=== PATIENT | male | born 2000 | race Caucasian/White ===

== ENCOUNTER 2022-10-08 16:21 | Emergency (ER) | payer MEDICAID ==
[~2022-10-08] VITALS: Ht 182.8 cm; Wt 70.3 kg
[2022-10-08] MEDS ORDERED: FAMOTIDINE INJ 20MG/2ML VIAL IV STA (16:40)
[2022-10-08] MEDS ORDERED: ONDANSETRON 4 MG/2 ML (SDV) Z0FRAN IVP ONE (16:45)
--- NOTE | 2022-10-08 16:46 | ED Chest Pain ---
General Chief Complaint: Abdominal/GI Problems Stated Complaint: ABD PAIN | CHEST PAIN | LAST 4-5 MONTHS Nursing Triage Note: PT AMB TO RM 4 WITH MOTHER WITH C/O CP AND ABD PAIN X4 MONTHS. PT STATES LATELY HE HAS FELT LIGHT HEADED AND LAST NIGHT HE VOMITTED BRIGHT RED BLOOD Source: patient Exam Limitations: no limitations History of Present Illness Date Seen by Provider: Oct 08, 2022 Time Seen by Provider: 16:31 Initial Comments 22-year-old male presents to the ER with complaint of chest pain and abdominal pain for the past 4 months. He states the chest pain is mostly in the sternal region, but also radiates outward. Reports that the chest pain is constant. He reports all over abdominal pain. States that he started vomiting last night and has had bright red streaks of blood in his emesis. He states that last night his pain felt like a burning pain, currently it feels like someone is stomping on his chest. He reports shortness of air at times. Denies diarrhea or constipation and dysuria. Last bowel movement was 2 hours ago, states it was brown in color, denies any blood or black tarry stools. He is currently prescribed omeprazole and Carafate, states he was started on this for possible peptic ulcer. States he has not had an upper endoscopy to confirm this. States that he was started on this medication because he was having a lot of vomiting, he was not having the same pain when he started the medications. He reports that he smokes cigarettes and weed daily. Denies alcohol use. Denies taking a lot of aspirin or ibuprofen recently. Allergies and Home Medications Allergies Coded Allergies: No Known Drug Allergies (Unverified , 10/08/22) Patient Home Medication List Home Medication List Reviewed: Yes Review of Systems Review of Systems Constitutional: see HPI Past Vyejcqy-Ostmjr-Isimve Hx Patient Social History Tobacco Use?: Yes Tobacco type used: Cigarettes Substance use?: Yes Substance type: Marijuana Alcohol Use?: No Pt feels they are or have been: No Past Medical History Surgery/Hospitalization HX: GERD Physical Exam Vital Signs Vital Signs - First Documented 10/08/22 16:30 Temp 37.3 Pulse 69 Resp 14 B/P (MAP) 141/92 (108) Pulse Ox 97 O2 Delivery Room Air Capillary Refill : Height, Weight, BMI Height: '" Weight: lbs. oz. kg; 21.00 BMI Method: General Appearance: No Apparent Distress, WD/WN Neck: Normal Inspection, Supple Respiratory: Lungs Clear, Normal Breath Sounds, No Accessory Muscle Use, No Respiratory Distress, Other (Chest mildly tender to palpation along sternum) Cardiovascular: Regular Rate, Rhythm Gastrointestinal: Normal Bowel Sounds, Non Tender, Soft Extremity: Normal Inspection, Normal Range of Motion Neurologic/Psychiatric: Alert, Normal Mood/Affect Skin: Normal Color, Warm/Dry Progress/Results/Core Measures Results/Orders Lab Results Laboratory Tests Test 10/08/22 16:44 10/08/22 17:07 Range/Units White Blood Count 9.9 4.3-11.0 10^3/uL Red Blood Count 5.02 4.30-5.52 10^6/uL Hemoglobin 16.8 13.3-17.7 g/dL Hematocrit 48 40-54 % Mean Corpuscular Volume 95 80-99 fL Mean Corpuscular Hemoglobin 34 25-34 pg Mean Corpuscular Hemoglobin Concent 35 32-36 g/dL Red Cell Distribution Width 12.6 10.0-14.5 % Platelet Count 226 130-400 10^3/uL Mean Platelet Volume 10.3 9.0-12.2 fL Immature Granulocyte % (Auto) 0 % Neutrophils (%) (Auto) 74 42-75 % Lymphocytes (%) (Auto) 17 12-44 % Monocytes (%) (Auto) 7 0-12 % Eosinophils (%) (Auto) 2 0-10 % Basophils (%) (Auto) 0 0-10 % Neutrophils # (Auto) 7.4 1.8-7.8 X 10^3 Lymphocytes # (Auto) 1.7 1.0-4.0 X 10^3 Monocytes # (Auto) 0.7 0.0-1.0 X 10^3 Eosinophils # (Auto) 0.2 0.0-0.3 10^3/uL Basophils # (Auto) 0.0 0.0-0.1 10^3/uL Immature Granulocyte # (Auto) 0.0 0.0-0.1 10^3/uL Prothrombin Time 13.6 12.2-14.7 SEC INR Comment 1.0 0.8-1.4 Activated Partial Thromboplast Time 33 24-35 SEC Sodium Level 139 135-145 MMOL/L Potassium Level 3.6 3.6-5.0 MMOL/L Chloride Level 105 98-107 MMOL/L Carbon Dioxide Level 22 21-32 MMOL/L Anion Gap 12 5-14 MMOL/L Blood Urea Nitrogen 7 7-18 MG/DL Creatinine 0.86 0.60-1.30 MG/DL Estimat Glomerular Filtration Rate 126 BUN/Creatinine Ratio 8 Glucose Level 104 70-105 MG/DL Calcium Level 10.1 8.5-10.1 MG/DL Corrected Calcium 8.5-10.1 MG/DL Magnesium Level 2.0 1.6-2.4 MG/DL Total Bilirubin 1.3 H 0.1-1.0 MG/DL Aspartate Amino Transf (AST/SGOT) 22 5-34 U/L Alanine Aminotransferase (ALT/SGPT) 25 0-55 U/L Alkaline Phosphatase 70 40-136 U/L Troponin I < 0.028 <0.028 NG/ML Total Protein 8.0 6.4-8.2 GM/DL Albumin 5.0 H 3.2-4.5 GM/DL Lipase 6 L 8-78 U/L Urine Color YELLOW Urine Clarity CLEAR Urine pH 7.0 5-9 Urine Specific [place] 1.010 L 1.016-1.022 Urine Protein NEGATIVE NEGATIVE Urine Glucose (UA) NEGATIVE NEGATIVE Urine Ketones 2+ H NEGATIVE Urine Nitrite NEGATIVE NEGATIVE Urine Bilirubin NEGATIVE NEGATIVE Urine Urobilinogen 0.2 < = 1.0 MG/DL Urine Leukocyte Esterase NEGATIVE NEGATIVE Urine RBC (Auto) 1+ H NEGATIVE Urine RBC 0-2 /HPF Urine WBC NONE /HPF Urine Crystals NONE /LPF Urine Bacteria NEGATIVE /HPF Urine Casts NONE /LPF Urine Mucus NEGATIVE /LPF Urine Culture Indicated NO My Orders Orders - YUDI ASTORGA APRN Ua Culture If Indicated (10/08/22 16:30) Cbc With Automated Diff (10/08/22 16:39) Magnesium (10/08/22 16:39) Chest 1 View, Ap/Pa Only (10/08/22 16:39) Ekg Tracing (10/08/22 16:39) Comprehensive Metabolic Panel (10/08/22 16:39) Protime With Inr (10/08/22 16:39) Partial Thromboplastin Time (10/08/22 16:39) Ed Iv/Invasive Line Start (10/08/22 16:39) Troponin I Andreina (10/08/22 16:39) Ondansetron Injection (Zofran Injectio (10/08/22 16:45) Famotidine Injection (Famotidine Injec (10/08/22 16:40) Lipase (10/08/22 16:46) Lidocaine 2% Viscous 15 Ml (Lidocaine 2% (10/08/22 17:30) Antacid Suspension (Mylanta Suspension (10/08/22 17:30) Medications Given in ED Current Medications Medications Dose Ordered Sig/Wang Route Start Time Stop Time Status Last Admin Dose Admin Al Hydrox/Mg Hydrox/Simethicone 30 ml ONCE ONCE PO 10/08/22 17:30 10/08/22 17:31 DC 10/08/22 17:35 30 ML Lidocaine HCl 15 ml ONCE ONCE PO 10/08/22 17:30 10/08/22 17:31 DC 10/08/22 17:35 15 ML Ondansetron HCl 4 mg ONCE ONCE IVP 10/08/22 16:45 10/08/22 16:46 DC 10/08/22 16:56 4 MG Vital Signs/I&O 10/08/22 10/08/22 16:30 18:19 Temp 37.3 37.3 Pulse 69 62 Resp 14 14 B/P (MAP) 141/92 (108) 134/67 Pulse Ox 97 98 O2 Delivery Room Air Room Air Blood Pressure Mean: 108 Progress Progress Note : Progress Note Patient seen and evaluated, resting comfortably in bed, no acute distress. Based on exam and symptoms workup initiated including CBC, CMP, lipase, UA, troponin, coags, magnesium EKG, chest x-ray. 1806 labs and x-ray reviewed. CBC grossly normal. CMP grossly normal. Total bilirubin slightly over 1.3. Troponin negative. Lipase normal. Urinalysis shows 2+ ketones, negative for infection. Coags normal. Chest x-ray shows no acute cardiopulmonary process. Patient reports improvement in pain after medications. Results discussed with patient. Will discharge with instructions to follow-up with Dr. Russo, surgery for possible upper endoscopy. Discharge instructions and return precautions provided. Initial ECG Impression Date: Oct 08, 2022 Initial ECG Impression Time: 16:50 Initial ECG Rate: 57 Initial ECG Rhythm: Normal Sinus Initial ECG Intervals: Normal Initial ECG Impression: Normal Initial ECG Comparisson: No Previous ECG Available Diagnostic Imaging Diagonstic Imaging: Xray Plain Films/CT/US/NM/MRI: chest Comments [facility]. [place], [place] NAME: LUISANA GAMBOA [facility] REC#: [id number] PT STATUS: REG ER : 2001 PHYSICIAN: YUDI ASTORGA APRN ADMIT DATE: 10/08/22/ER Signed Date of Exam:10/08/22 CHEST 1 VIEW, AP/PA ONLY CHEST 1 VIEW, AP/PA ONLY Indication: Chest pain. Comparison: None available. Findings: No focal airspace disease in the visualized lungs. No pleural effusion or pneumothorax. Normal cardiomediastinal silhouette. Impression: 1. No acute cardiopulmonary process by portable radiography. Dictated by: Dictated on workstation # [id number] Dict: 10/08/221655 Trans: 10/08/221655 [facility] [id number] Interpreted by: CARLOS WILSON MD Electronically signed by: CARLOS WILSON MD 10/08/221655 Departure Impression Primary Impression: Abdominal pain Additional Impressions: Chest pain Gastric reflux Disposition: 01 HOME, SELF-CARE Condition: Stable Departure-Patient Inst. Decision time for Depature: 18:06 Referrals: CHARLY RUSSO MD, CURTIS L PA (PCP) Primary Care Physician Patient Instructions: Peptic Ulcers (DC) Add. Discharge Instructions: Call Dr. Russo's office tomorrow to schedule a follow-up appointment for an upper endoscopy. Continue taking your omeprazole and Carafate as prescribed. Follow-up with your primary care provider. Return for any severe pain, significant amount of bloody emesis, blood in stool or black tarry stool, or any other new, concerning, or worsening symptoms. All discharge instructions reviewed with patient and/or family. Voiced understanding. YUDI ASTORGA APRN Oct 08, 2022 16:46
[2022-10-08 16:53] LABS: BASOPHILS % (AUTO) 0 % (0-10); EOSINOPHILS # (AUTO) 0.2 10^3/uL (0.0-0.3); EOSINOPHILS % (AUTO) 2 % (0-10); HEMATOCRIT 48 % (40-54); HEMOGLOBIN 16.8 g/dL (13.3-17.7); LYMPHOCYTES # (AUTO) 1.7 X 10^3 (1.0-4.0); LYMPHOCYTES % (AUTO) 17 % (12-44); MEAN CORPUSCULAR HEMOGLOBIN 34 pg (25-34); MEAN CORPUSCULAR HGB CONC 35 g/dL (32-36); MEAN CORPUSCULAR VOLUME 95 fL (80-99); MEAN PLATELET VOLUME 10.3 fL (9.0-12.2); MONOCYTES # (AUTO) 0.7 X 10^3 (0.0-1.0); MONOCYTES % (AUTO) 7 % (0-12); NEUTROPHILS # (AUTO) 7.4 X 10^3 (1.8-7.8); NEUTROPHILS % (AUTO) 74 % (42-75); PLATELET COUNT 226 10^3/uL (130-400); WHITE BLOOD COUNT 9.9 10^3/uL (4.3-11.0)
--- NOTE | 2022-10-08 16:58 | Diagnostic Imaging Report ---
CHEST 1 VIEW, AP/PA ONLY Indication: Chest pain. Comparison: None available. Findings: No focal airspace disease in the visualized lungs. No pleural effusion or pneumothorax. Normal cardiomediastinal silhouette. Impression: 1. No acute cardiopulmonary process by portable radiography. Dictated by: Dictated on workstation # [id number]
[2022-10-08 17:03] LABS: PROTHROMBIN TIME PATIENT 13.6 SEC (12.2-14.7)
[2022-10-08 17:07] LABS: CHLORIDE 105 MMOL/L (98-107); POTASSIUM 3.6 MMOL/L (3.6-5.0); SODIUM 139 MMOL/L (135-145)
[2022-10-08 17:08] LABS: CALCIUM 10.1 MG/DL (8.5-10.1)
[2022-10-08 17:09] LABS: GLUCOSE 104 MG/DL (70-105)
[2022-10-08 17:10] LABS: CARBON DIOXIDE 22 MMOL/L (21-32)
[2022-10-08 17:11] LABS: BILIRUBIN,TOTAL 1.3 MG/DL (0.1-1.0)
[2022-10-08 17:12] LABS: ALKALINE PHOSPHATASE 70 U/L (40-136); CREATININE SERUM 0.86 MG/DL (0.60-1.30)
[2022-10-08 17:13] LABS: GFR ESTIMATED 126
[2022-10-08 17:14] LABS: BUN/CREATININE RATIO 8
[2022-10-08 17:15] LABS: ALANINE AMINOTRANSFERASE 25 U/L (0-55)
[2022-10-08 17:16] LABS: LIPASE 6 U/L (8-78)
[2022-10-08 17:22] LABS: CLARITY,URINE CLEAR; COLOR,URINE YELLOW
[2022-10-08 17:23] LABS: BACTERIA,URINE NEGATIVE /HPF; BILIRUBIN,URINE NEGATIVE (NEGATIVE); GLUCOSE, URINE (UA) NEGATIVE (NEGATIVE); KETONES,URINE 2+ (NEGATIVE); LEUKOCYTE ESTERASE ,URINE NEGATIVE (NEGATIVE); NITRITE,URINE NEGATIVE (NEGATIVE); PROTEIN,URINE NEGATIVE (NEGATIVE); RBC,URINE 0-2 /HPF
[2022-10-08] MEDS ORDERED: ANTACID SUSP 30 ML UDC (MYLANTA) PO ONE (17:30)
[2022-10-08] MEDS ORDERED: LIDOCAINE 2% VISCOUS 15 ML UDC PO ONE (17:30)
[2022-10-08 18:19] VITALS: BP 134/67
== END 2022-10-08 18:21 | disposition home or self-care (01) ==
LOC: ER 16:25
DX: K21.9 Gastro-esophageal reflux disease without esophagitis (principal); F17.210 Nicotine dependence, cigarettes, uncomplicated
CPT/HCPCS: 36415; 71045; 80053; 81000; 83690; 83735; 84484; 85025; 85610; 85730; 93005

== ENCOUNTER 2022-10-15 12:18 | Day surgery (SDC) | payer MEDICAID ==
[~2022-10-15] VITALS: Ht 180.3 cm; Wt 70.3 kg
[2022-10-15] MEDS ORDERED: LACTATED RINGERS 1,000 ML 1,000 ML IV STA (12:36)
[2022-10-15] MEDS ORDERED: SUCR1TAB PO (12:36)
[2022-10-15] MEDS ORDERED: OMEP20CA18 PO (12:36)
[2022-10-15 12:42] VITALS: BP 118/74
[2022-10-15] MEDS ORDERED: HURRICAINE EXT TUBE (BENZOCAINE) XX PRN (12:45)
[2022-10-15] MEDS ORDERED: LIDOCAINE JELLY 2% 6 ML SYRINGE MM PRN (12:45)
--- NOTE | 2022-10-15 13:34 | Progress Note-Pre Operative ---
Pre-Operative Progress Note Date of Available H&P: Oct 15, 2022 Date H&P Reviewed: Oct 15, 2022 Time H&P Reviewed: 13:30 History & Physical: No changes noted Pre-Operative Diagnosis: GERD, hematamesis CHARLY HELMS MD Oct 15, 2022 13:34
[2022-10-15] MEDS ORDERED: OMEP40CA6 PO (13:35)
--- NOTE | 2022-10-15 13:36 | Discharge Inst-Surgical ---
D/C Lap Instructions-ANALIA New, Converted, or Re-Newed RX: RX on Chart Follow Up Activity as tolerated High Fiber Diet 25g or more per day Avoid Alcohol, Caffeine, Spicy [place] and Acid foods. Drink 64 fluid oz or more of fluids per day. Symptoms to Report: Fever over 101 degree F, Nausea/Vomiting If any problems/questions: Contact your physician or go to Emergency Room CHARLY HELMS MD Oct 15, 2022 13:36
[2022-10-15] MEDS ORDERED: ONDANSETRON INJECTION 4 MG/2 ML (SDV) IVP PRN (13:45)
[2022-10-15] MEDS ORDERED: ONDANSETRON 4 MG ORAL DISSOLVE TABLET PO PRN (13:45)
[2022-10-15] MEDS ORDERED: LIDOCAINE JELLY 2% 6 ML SYRINGE ONE (15:17)
[2022-10-15] MEDS ORDERED: MIDAZOLAM INJ 2 MG/2 ML VIAL ONE (15:42)
--- NOTE | 2022-10-15 15:59 | Anesthesia-General Post-Op ---
MAC Patient Condition Mental Status/LOC: Same as Preop Cardiovascular: Satisfactory Nausea/Vomiting: Absent Respiratory: Satisfactory Pain: Controlled Complications: Absent Post Op Complications Complications None Follow Up Care/Instructions Patient Instructions None needed. Anesthesiology Discharge Order Discharge Order Patient is doing well, no complaints, stable vital signs, no apparent adverse anesthesia problems. No complications reported per nursing. GEN CHOUDHURY WAREHOUSE MANAGER Oct 15, 2022 15:59
[2022-10-15 16:00] VITALS: BP 113/57
[2022-10-15 16:15] VITALS: BP 115/56
[2022-10-15] MEDS ORDERED: PANT40TA52 PO (16:31)
[2022-10-15 16:40] VITALS: BP 115/56
--- NOTE | 2022-10-15 16:41 | Progress Note-Post Operative ---
Post-Operative Progess Note Surgeon (s)/Lumber Driver (s) Surgeon CHARLY HELMS MD Lumber Driver: none Pre-Operative Diagnosis GERD, hematamesis Post-Operative Diagnosis reflux esophagitis(grade B-C), small HH(1cm), moderate gastritis with antral erosion. Procedure & Operative Findings Date of Procedure 10/15/22 Procedure Performed/Findings EGD with bx. Anesthesia Type mac Estimated Blood Loss Estimated blood loss (mL): minimal Specimens/Packing Specimens Removed ge jxn, antrum CHARLY HELMS MD Oct 15, 2022 16:41
--- NOTE | 2022-10-16 02:10 | OPERATIVE REPORT ---
DATE OF SERVICE: 10/15/2022 ATTENDING PRIMARY CARE PHYSICIAN: RAVEN Spaulding. PREOPERATIVE DIAGNOSES: Gastroesophageal reflux disease, epigastric pain, hematemesis. POSTOPERATIVE DIAGNOSES: Reflux esophagitis, [place] grade C, small hiatal hernia, 1.5 cm in size, moderate gastritis with an antral erosion, mild duodenitis. PROCEDURE: EGD with biopsy. SURGEON: Charly Helms MD. ANESTHESIA: Monitored anesthesia care. ESTIMATED BLOOD LOSS: Minimal. FINDINGS: Same as postoperative diagnoses. DISPOSITION: The patient tolerated the procedure well. INDICATIONS: The patient is a 22-year-old male who presented to the emergency department approximately a week and a half ago due to nausea and vomiting and noticing blood in his emesis. He reports that he has had some intermittent episodes of reflux and epigastric pain for the past 2 months. He also reports that this pain does sometimes radiate towards the right upper abdominal quadrant as well as the back. He also reports early satiety. He does have some risk factors for reflux including smoking cigarettes daily for approximately 5 pack years. He also does smoke THC on a regular basis. He does drink some caffeinated beverages with coffee in the morning. He was recently started on omeprazole and Carafate and states that this did help alleviate some of his symptomatology. DESCRIPTION OF PROCEDURE: The patient was brought to the endoscopy suite and laid in the left lateral decubitus position. After adequate IV pain and sedative medications and monitored anesthesia care, the mouthpiece was applied. The endoscope was placed in the mouth, visualized the pharynx and hypopharyngeal region. Vocal cords, epiglottis and vallecula identified and appeared to be normal. Endoscope was then gently intubated into the esophageal opening and esophagus insufflated. The endoscope was then advanced through the first, second and third portions of esophagus at the level of the GE junction. Reflux esophagitis, [place] grade C was identified. There were no ulcers, strictures or any active bleeding sources. A biopsy was taken with forceps with visualization of good hemostasis. The endoscope was then advanced in the stomach and endoscope retroflexed, visualizing a small hiatal hernia approximately 1.5 cm in size. There was a moderate gastritis with a small antral erosion with no active bleeding. A biopsy was taken of this region with forceps with visualization of good hemostasis. The endoscope was then advanced through the pylorus and the first and second portion of the duodenum, which appeared normal with no ulcerations or any distal obstructions. The endoscope was slowly withdrawn while taking a second look and suctioning of residual air with no additional findings. The patient tolerated the procedure well. We will recommend the necessary lifestyle and dietary accommodation, which would encompass smoking cessation as well as avoidance of caffeinated beverages, spicy, greasy and acidic foods. He also needs to proceed with small and more frequent meals, avoidance of eating at night as well as head elevation while lying supine. He is already on omeprazole 40 mg daily; however, we will add pantoprazole 40 mg to be taken at a separate time during the day for the next 3 months. If he is doing better, he may then discontinue the pantoprazole. We also feel that there may be gallbladder component to his symptoms with the pain radiating towards the right upper abdominal quadrant as well as the back and early satiety with abdominal bloating and the episodes of nausea and vomiting, so we will have him follow up in the office in 1 week and schedule him for noninvasive testing including the gallbladder ultrasound as well as a HIDA scan if necessary. Job ID: [id number] DocumentID: [id number] Dictated Date: 10/15/2022 16:06:12 Business Partner Date: 10/16/2022 02:07:00 Dictated By: CHARLY HELMS MD
== END 2022-10-15 16:42 | disposition home or self-care (01) ==
LOC: ENDO 12:18
PROVIDERS: ATTEND Surgery
DX: K29.50 Unspecified chronic gastritis without bleeding (principal); K21.00 Gastro-esophageal reflux disease with esophagitis, without bleeding; K29.80 Duodenitis without bleeding; K27.9 Peptic ulcer, site unspecified, unspecified as acute or chronic, without hemorrhage or perforation; K44.9 Diaphragmatic hernia without obstruction or gangrene; F17.210 Nicotine dependence, cigarettes, uncomplicated

== ENCOUNTER → 2022-10-27 | Outpatient (CLI) | payer MEDICAID ==
[~2022-10-27] MED LIST: OMEP20CA18 PO; OMEP40CA6 PO; PANT40TA52 PO; SUCR1TAB PO
--- NOTE | 2022-10-27 08:48 | Diagnostic Imaging Report ---
PROCEDURE: US Gallbladder. TECHNIQUE: Multiple real-time grayscale images were obtained over the right upper quadrant in various projections. INDICATION: Right upper quadrant pain with nausea and vomiting. Liver is normal in size at 15 cm. Portal vein is patent and shows normal direction of flow. No liver mass is identified. The gallbladder is without stones or sludge. There is no wall thickening or biliary ductal dilatation. Pancreas is unremarkable. Aorta is nonaneurysmal. IVC is patent. The right kidney is without calculi or hydronephrosis. There is no ascites. IMPRESSION: Unremarkable gallbladder ultrasound. There is no evidence of cholelithiasis or acute cholecystitis. Dictated by: Dictated on workstation # [id number]
== END ==
LOC: RAD 07:45
PROVIDERS: ATTEND Surgery
DX: R10.11 Right upper quadrant pain (principal); R11.2 Nausea with vomiting, unspecified
CPT/HCPCS: 76705

== ENCOUNTER → 2022-10-30 | Outpatient (CLI) | payer MEDICAID ==
[~2022-10-30] MED LIST changes: +CATHETER FLUSH 10 ML SYR IVP PRN
--- NOTE | 2022-10-30 12:52 | Diagnostic Imaging Report ---
Indication: Right upper quadrant pain. Patient was administered 5.5 mCi technetium 99m Choletec intravenously and imaging over the abdomen was performed. At 60 minutes patient ingested 8 ounces of ensure and a gallbladder ejection fraction was calculated. There is homogeneous uptake of activity by the liver with prompt excretion of activity into the gallbladder and common duct. There is normal passage of activity into the small bowel. Gallbladder ejection fraction is normal at 89%. IMPRESSION: Normal HIDA scan and gallbladder ejection fraction. Dictated by: Dictated on workstation # [id number]
== END ==
LOC: CARD 12:00
PROVIDERS: ATTEND Surgery
DX: R10.11 Right upper quadrant pain (principal); R11.2 Nausea with vomiting, unspecified
CPT/HCPCS: 78227; A9537

== ENCOUNTER 2022-11-06 05:31 | Outpatient (CLI) | payer MEDICAID ==
[~2022-11-06] VITALS: Ht 180.3 cm; Wt 66.4 kg
[~2022-11-06 05:31] MED LIST changes: -CATHETER FLUSH 10 ML SYR IVP PRN
== END 2022-11-06 14:09 | disposition home or self-care (01) ==
LOC: PREOP 05:31
PROVIDERS: ATTEND Surgery
DX: Z01.818 Encounter for other preprocedural examination (principal)

== ENCOUNTER 2022-11-13 12:46 | Day surgery (SDC) | payer MEDICAID ==
[2022-11-13] VITALS (7 sets, daily range): BP systolic 110–144; BP diastolic 60–92
[2022-11-13] MEDS ORDERED: ceFAZolin INJECTION 2,000 MG in NS (IVPB) 50 ML 50 ML IV ONE (13:00)
[2022-11-13] MEDS: LACTATED RINGERS 1,000 ML 1,000 ML IV PRN ×2 (13:13→15:01)
--- NOTE | 2022-11-13 13:38 | Progress Note-Pre Operative ---
Pre-Operative Progress Note Date H&P Reviewed: Nov 13, 2022 Time H&P Reviewed: 13:35 History & Physical: H&P Reviewed, Patient Examed, No changes noted Pre-Operative Diagnosis: Biliary Dyskinesia AYDEN JACOBSON APRN Nov 13, 2022 13:38
[2022-11-13] MEDS ORDERED: HYDR-3817 PO (13:39)
--- NOTE | 2022-11-13 13:39 | Discharge Inst-Surgical ---
D/C Lap Instructions-KIDO Reconcile Patient Problems Problems Reviewed?: Yes New, Converted, or Re-Newed RX: RX on Chart Follow Up Appt in 2 weeks Activity as tolerated No driving for 24 hours No driving while on pain medications Incentive Spirometry use every 2 hours while awake Regular Diet Symptoms to Report: Fever over 101 degree F, Nausea/Vomiting Infection Signs and Symptoms to report: Increased redness, Foul odor of wound, Increased drainage Bathing instructions: May shower Operative Area Clean/Dry; Keep incision clean/dry If any problems/questions: Contact your physician or go to Emergency Room AYDEN JACOBSON APRN Nov 13, 2022 13:39
[2022-11-13] MEDS ORDERED: morphine INJ 10 MG/ML 1ML (SYR OR VIAL) IVP PRN (13:45)
[2022-11-13] MEDS ORDERED: ACETAMINOPHEN 325 MG TABLET PO PRN (13:45)
[2022-11-13] MEDS ORDERED: HYDROcodone/ACETAMINOPHEN 5 MG/325 MG TABLET PO ONE (13:45)
[2022-11-13] MEDS ORDERED: ONDANSETRON INJECTION 4 MG/2 ML (SDV) IVP PRN (13:45)
[2022-11-13] MEDS ORDERED: LIDOCAINE/EPI 1%-1:200,000 (XYLOCAINE) 30 ML VIAL ONE (14:02)
[2022-11-13] MEDS ORDERED: dexAMETHasone INJ 10 MG/ML 1 ML VIAL ONE (14:32)
[2022-11-13] MEDS ORDERED: GLYCOPYRROLATE INJ 0.2 MG/ML 2 ML VIAL ONE (14:32)
[2022-11-13] MEDS ORDERED: fentaNYL INJECTION 100 MCG/2 ML VIAL ONE ×2 (14:32→16:21)
[2022-11-13] MEDS ORDERED: proPOfol INJECTION 200 MG/20 ML VIAL IV ONE (14:32)
[2022-11-13] MEDS ORDERED: LIDOCAINE PF 2% 5 ML VIAL ONE (14:32)
[2022-11-13] MEDS ORDERED: ONDANSETRON INJECTION 4 MG/2 ML (SDV) ONE (14:32)
[2022-11-13] MEDS ORDERED: MIDAZOLAM INJ 2 MG/2 ML VIAL ONE (14:32)
[2022-11-13] MEDS ORDERED: NEOSTIGMINE 1 MG/1ML 10 ML VIAL ONE (14:33)
[2022-11-13] MEDS ORDERED: LIDOCAINE/EPI 1%-1:200,000 (XYLOCAINE) 30 ML VIAL INJ ONE (14:55)
[2022-11-13] MEDS ORDERED: ROCURONIUM 50 MG/5 ML VIAL IV ONE (15:20)
--- NOTE | 2022-11-13 15:42 | Progress Note-Post Operative ---
Post-Operative Progess Note Surgeon (s)/Turfgrass Management Professor (s) Surgeon CHARLY HELMS MD [employer] Management Professor: jair pierre BELT CONVEYOR DRIER Pre-Operative Diagnosis Biliary Dyskinesia Post-Operative Diagnosis same Procedure & Operative Findings Date of Procedure 11/13/22 Procedure Performed/Findings laparoscopic cholecystectomy Anesthesia Type get Estimated Blood Loss Estimated blood loss (mL): minimal Specimens/Packing Specimens Removed gallbladder CHARLY HELMS MD Nov 13, 2022 15:42
--- NOTE | 2022-11-13 15:44 | Anesthesia-General Post-Op ---
General Patient Condition Mental Status/LOC: Same as Preop Cardiovascular: Satisfactory Nausea/Vomiting: Absent Respiratory: Satisfactory Pain: Controlled Complications: Absent Post Op Complications Complications None Follow Up Care/Instructions Patient Instructions None needed. Anesthesia/Patient Condition Patient Condition Patient is doing well, no complaints, stable vital signs, no apparent adverse anesthesia problems. No complications reported per nursing. FARHANA BLOOD CRNA Nov 13, 2022 15:44
[2022-11-13] MEDS ORDERED: fentaNYL INJECTION 100 MCG/2 ML VIAL IVP ONE (15:45)
[2022-11-13] MEDS ORDERED: HYDROmorphone INJECTION 2 MG/ML VIAL IV ONE (15:45)
[2022-11-13] MEDS ORDERED: morphine INJ 10 MG/ML 1ML (SYR OR VIAL) ONE (15:49)
[2022-11-13] MEDS ORDERED: KETOROLAC INJ 30 MG/ML VIAL ONE (16:11)
[2022-11-13] MEDS ORDERED: KETOROLAC INJ 30 MG/ML VIAL IM ONE (16:15)
[2022-11-13] MEDS ORDERED: HYDROcodone/ACETAMINOPHEN 5 MG/325 MG TABLET ONE ×2 (16:18→16:43)
[2022-11-13] MEDS: ONDANSETRON INJECTION 4 MG/2 ML (SDV) IVP PRN ×2 (16:42→17:15)
[2022-11-13] MEDS ORDERED: HYDROcodone/ACETAMINOPHEN 5 MG/325 MG TABLET PO PRN (16:45)
--- NOTE | 2022-11-13 20:31 | OPERATIVE REPORT ---
DATE OF SERVICE: 11/13/2022 ATTENDING BULLET SWAGING MACHINE OPERATOR: RAVEN Spaulding. PREOPERATIVE DIAGNOSIS; Symptomatic biliary dyskinesia. POSTOPERATIVE DIAGNOSIS; Symptomatic biliary dyskinesia. PROCEDURE; Laparoscopic cholecystectomy. SURGEON; Charly Helms MD SALES REPRESENTATIVE CONSULTANT; Arturo Roach APRN ANESTHESIA; General endotracheal. ESTIMATED BLOOD LOSS; Minimal. FINDINGS; Distended gallbladder with omental adhesions to the fundus of the gallbladder, biliary sludge. DISPOSITION; The patient tolerated the procedure well. INDICATIONS; The patient is a 22-year-old male who has had intermittent episodes of nausea and vomiting as well as pain in the epigastric region as well as a right upper abdominal quadrant. He does have risk factors for peptic ulcer disease including smoking as well as daily alcohol use. He underwent an EGD recently and was found to have reflux esophagitis and moderate gastritis. He was treated with Protonix as well as Carafate; however, states that he continues to have the symptoms of nausea, vomiting as well as a crampy abdominal pain. He then underwent further workup including an ultrasound, which did not show any abnormalities and this was followed by a HIDA scan, which showed a normal ejection fraction; however, he did again have abdominal bloating, nausea, vomiting, crampy abdominal pain following the administration of the Kinevac analogue consistent with symptomatic biliary dyskinesia. DESCRIPTION OF PROCEDURE; The patient was brought to the operating room, laid supine on the table. After adequate IV pain and sedative medications and general endotracheal intubation, the abdomen was prepped and draped in standard surgical fashion. A 0.5% Marcaine with epinephrine was then used to anesthetize the overlying skin in the left upper abdominal quadrant and a transverse skin incision made using a #15 blade. An 0 silk suture was applied to the medial aspect of the incision for retraction and a Veress needle inserted with low opening pressure of 0 mmHg and the abdomen was then insufflated to 15 mmHg pressure. The Veress needle removed and a 5 mm trocar placed followed by a 5 mm 45-degree angle laparoscope visualized the peritoneal cavity. There was a slightly distended gallbladder as well as omental adhesions towards the fundus of the gallbladder. There was no gallbladder wall thickening. Liver, stomach, omentum appeared normal. Under direct visualization, we then proceeded to place a supraumbilical 10 mm port after the skin and peritoneal lining were anesthetized using 0.5% Marcaine with epinephrine and a transverse skin incision made using a #15 blade. In a similar manner, a right upper abdominal quadrant 5 mm port was placed. The endoscope was then retracted anteriorly and superiorly. The omental adhesions were then taken down bluntly as well as using electrocautery on the hook instrument. The hepatoduodenal ligament was then dissected with blunt dissection as well as electrocautery using the hook instrument as well as a [place] dissector. The entire critical view of safety was identified including the triangle of [place] as well as the cystic duct and artery as the only 2 structures going into the gallbladder as well as the cystic plate behind the proximal gallbladder. A timeout was then taken and the cystic duct and artery were then clipped proximally and distally and cut with EndoShears. The gallbladder was then dissected off the liver bed using cautery on hook instrument with visualization of good hemostasis as well as no leaking ducts of Luschka. The gallbladder was removed through the 10 mm port site using an EndoCatch bag. The 10 mm port site fascia and peritoneum were then closed under direct visualization using a Johan-Shun device and an 0 Vicryl suture. The abdomen was then desufflated and the remaining ports were removed. All skin incisions were closed using 4-0 Monocryl running subcuticular sutures. Wounds were then cleaned and covered with Dermabond. The patient tolerated the procedure well. We will start IV and oral pain medication as well as a clear liquid diet. Once tolerating clears with good pain control with oral pain medication and is ambulating well, we will discharge him home where he will be instructed to do no heavy lifting or exertion for the next 2 weeks. Job ID: [id number] DocumentID: [id number] Dictated Date: 11/13/2022 15:48:56 Option Trader Date: 11/13/2022 20:29:00 Dictated By: CHARLY HELMS MD
== END 2022-11-13 17:46 | disposition home or self-care (01) ==
LOC: SDC 12:46
PROVIDERS: ATTEND Surgery
DX: K81.1 Chronic cholecystitis (principal); K82.8 Other specified diseases of gallbladder; K66.0 Peritoneal adhesions (postprocedural) (postinfection); K29.30 Chronic superficial gastritis without bleeding; K21.00 Gastro-esophageal reflux disease with esophagitis, without bleeding; K44.9 Diaphragmatic hernia without obstruction or gangrene; F17.210 Nicotine dependence, cigarettes, uncomplicated; Z79.899 Other long term (current) drug therapy
CPT/HCPCS: 87081